=== PATIENT | female | born 1975 | race Caucasian/White ===

== ENCOUNTER 2020-08-17 10:36 | Emergency (ER) | payer OTHER ==
[~2020-08-17] VITALS: Ht 160 cm; Wt 66.6 kg
--- NOTE | 2020-08-17 11:24 | NUR ---
BLADDER SCAN 33 ML RUQ, 18ML LLQ. NO BLADDER DISTENTION FELT, PT TENDER WITH PALPATION TO BLADDER. PT STATES LAST VOID LAST NIGHT, NORMAL PO INTAKE TODAY. ERP IN WITH US MACHINE, MINIMAL URINE IN BLADDER. PT THEN STATES SMALL AMOUNT OF URINE TODAY.
--- NOTE | 2020-08-17 11:32 | NUR ---
WATER PROVIDED PER ERP ORDER. AWAITING LAB RESULTS
[2020-08-17 11:33] LABS: BASOPHILS % (AUTO) 1 % (0-1); EOSINOPHILS % (AUTO) 2 % (1-7); LYMPHOCYTES % (AUTO) 27 % (22-44); MEAN CORPUSCULAR HEMOGLOBIN 32.9 pg (27.0-34.8); MEAN CORPUSCULAR HGB CONC 35.2 g/dL (32.4-35.8); MEAN PLATELET VOLUME 7.3 fL (7.4-10.4); MONOCYTES % (AUTO) 7 % (2-9); NEUTROPHILS % (AUTO) 63 % (42-75); PLATELET COUNT 291 x10^3/uL (130-400); RED BLOOD COUNT 4.43 x10^6/uL (3.82-5.3); RED CELL DISTRIBUTION WIDTH 12.1 % (9.6-15.2)
[2020-08-17 11:42] LABS: ANION GAP 8 mmol/L (5-15); CALCIUM 8.8 mg/dL (8.5-10.1); CHLORIDE 103 mmol/L (98-107); CREATININE 0.67 mg/dL (0.55-1.02)
--- NOTE | 2020-08-17 11:58 | NUR ---
URINE COLLECTED/SENT TO LAB. ERP NOTIFIED OF PT'S ABILITY TO VOID. JAYLON WARMER IN PLACE. CALL LIGHT WITHIN REACH.
[2020-08-17 12:06] LABS: MICROSCOPIC AUTO
--- NOTE | 2020-08-17 12:53 | NUR ---
ALL RESULTS BACK, PT FOR RECHECK
[2020-08-17 14:18] VITALS: BP 125/62
== END 2020-08-17 14:20 | disposition home or self-care (01) ==
LOC: ED 13:00
DX: N30.00 Acute cystitis without hematuria (principal); Z90.49 Acquired absence of other specified parts of digestive tract
CPT/HCPCS: 36415; 80048; 81001; 85025; 87077; 87086; 87186; 99284